=== PATIENT | male | born 1995 | race Caucasian/White ===

== ENCOUNTER → 2016-11-26 | Outpatient (CLI) | payer OTHER ==
--- NOTE | 2016-11-26 19:23 | ECHO ---
DATE OF PROCEDURE: 11/26/2016 AGE: 21 GENDER: Male HEIGHT: 70 inches WEIGHT: 187 pounds BODY SURFACE AREA: 20 m2 PATIENT LOCATION: Outpatient. REFERRING PHYSICIAN: Alli Liang MD INDICATION: Abnormal EKG. Suspected left ventricular hypertrophy (LVH). 2-D MEASUREMENTS: RV: 4.2 cm LV: 5.1 cm Septum: 0.9 cm Posterior wall: 0.9 cm Aortic root: 3.0 cm LA: 3.5 cm LVEF: 60% DOPPLER MEASUREMENTS: AV: 1.0 m/s LVOT: 0.8 m/s LVOT diameter: 2.3 cm MV-E: 76, A: 38, EA ratio: 2.0 Early mitral deceleration time: 158 ms E prime: 11.5, A prime 7, EE prime ratio: 6.6 PV: 0.85 m/s Pulmonary artery acceleration time: 137 ms RVSP: 24 mmHg IVC: 1.9 COMMENTS: Sinus bradycardia/sinus arrhythmia without intraventricular conduction disturbance. Normal cardiac chamber sizes and wall thickness. On real-time imaging from the parasternal and apical projections wall motion was symmetrical and normal. Normal-appearing mitral valvular apparatus and leaflet excursion with no posterior systolic buckling. Three equal size aortic cusps of normal thickness and cusp separation. Normal aortic root size. No pericardial effusion or intracardiac mass. Color flow Doppler study taken from the parasternal and apical projection showed trace mitral and mild tricuspid, but no aortic insufficiency (physiological findings). Guided continuous wave Doppler of his aortic valve showed a normal peak systolic velocity against left ventricle (LV) outflow tract obstruction. Pulsed and continuous wave Doppler of his LV inflow tract taken from the apical four-chamber projection showed normal diastolic filling velocities against mitral stenosis. There was a normal filling pattern against LV diastolic dysfunction. Pulsed and continuous wave Doppler of his pulmonary trunk showed a normal peak systolic velocity against RV outflow tract obstruction. Pulmonary artery acceleration time was normal against an elevated pulmonary vascular resistance. Guided continuous wave Doppler of his tricuspid valve allowed our estimation of his right ventricular systolic pressure (within normal limits). His inferior vena cava was of normal size with normal respiratory collapse against an elevated central venous pressure. CONCLUSION: Normal-appearing echocardiogram/Doppler study.
== END ==
LOC: M CARPUL 09:55
PROVIDERS: ATTEND Family Medicine
DX: I42.9 Cardiomyopathy, unspecified (principal)